=== PATIENT | female | born 1980 | race Caucasian/White ===

== ENCOUNTER 2016-05-17 22:55 | Emergency (ER) | payer SELFPAY ==
[~2016-05-17] VITALS: Ht 160 cm; Wt 81.6 kg
[2016-05-17 23:09] VITALS: BP 125/80
--- NOTE | 2016-05-17 23:45 | NUR ---
PT AMBULATED WITH ASSISTANCE TO BED 4
--- NOTE | 2016-05-17 23:49 | NUR ---
DR. GO EVALUATING PATIENT AT BEDSIDE
[2016-05-17] MEDS ORDERED: KETOROLAC 30 MG/ML VIAL IM ONE (23:55)
--- NOTE | 2016-05-18 | NUR ---
PATIENT PRESENTS TO ED WITH C/O BURNING TO RIGHT THIGH . PT STATES THE BURNING HAS BEEN PERSISTENT X2DAYS . DENIES N/V/D; SKIN IS PINK/WARM/DRY; AAOX4 WITH EVEN AND STEADY GAIT; LUNGS CLEAR BL; HR EVEN AND REGULAR; PT DENIES ANY FEVER, CP, SOB, OR COUGH AT THIS TIME; PATIENT STATES PAIN OF 10/10 AT THIS TIME; VSS; PATIENT POSITIONED FOR COMFORT; HOB ELEVATED; BEDRAILS UP X2; BED DOWN. ER MD MADE AWARE OF PT STATUS.
[2016-05-18 00:14] VITALS: BP 125/80
--- NOTE | 2016-05-18 00:14 | NUR ---
Patient discharged with v/s stable. Written and verbal after care instructions given and explained. Patient alert, oriented and verbalized understanding of instructions. Ambulatory with steady gait. All questions addressed prior to discharge. ID band removed. Patient advised to follow up with PMD. Rx of TRAMADOL HYDROCHLORIDE given. Patient educated on indication of medication including possible reaction and side effects. Opportunity to ask questions provided and answered.
== END 2016-05-18 00:14 | disposition home or self-care (01) ==
LOC: MED 22:55
PROC: 3E033GC Introduction of Other Therapeutic Substance into Peripheral Vein, Percutaneous Approach (ICD-10-PCS; principal; 2016-05-17)
DX: I83.811 Varicose veins of right lower extremity with pain (principal)
CPT/HCPCS: 96372; 99283; J1885